=== PATIENT | male | born 1975 | race Caucasian/White ===

== ENCOUNTER 2022-11-25 14:45 | Outpatient (REF) | payer MEDICAID, SELFPAY ==
--- NOTE | ~2022-11-25 | XR_ITS ---
EXAMINATION: XR chest 2V CLINICAL INFORMATION: Reason for Exam J44.9 COMPARISON: Prior chest x-ray 12/18/2017 TECHNIQUE: XR chest 2V Lungs and Mona: Both lungs are clear. Pleura: Costophrenic angles are sharp. No pneumothorax. Heart: The heart is normal in size. Mediastinum: The mediastinum is within normal limits.. Bones: Skeletal structures included are normal for patient's age. XR/XR chest 2V IMPRESSION: No radiographic evidence of acute cardiopulmonary disease.
== END 2022-11-25 14:46 | disposition home or self-care (01) ==
LOC: HO.HHCX 14:45
PROVIDERS: Visit Provider Registered Nurse
DX: J44.9 Chronic obstructive pulmonary disease, unspecified (principal)
CPT/HCPCS: 71046

== ENCOUNTER 2023-04-11 10:41 | Outpatient (REF) | payer MEDICAID, SELFPAY ==
[2023-04-11 11:52] LABS: MANUAL DIFF FLAG NO
[2023-04-11 12:15] LABS: Basophils Percent Auto 0.8 % (0-2); Eosinophils Absolute Auto 0.2 X10*3/uL (0.0-0.4); Eosinophils Percent Auto 2.9 % (0-4); Hematocrit 45.7 % (42.0-52.0); Hemoglobin 15.4 g/dl (14.0-18.0); Imm Gran Abs Auto 0.01 X10*3/uL (0.00-0.03); Imm Gran Pct Auto 0.2 % (0.0-0.4); Lymphocytes Absolute Auto 1.6 X10*3/uL (1.2-4.9); Lymphocytes Percent Auto 30.3 % (20-40); Mean Corpuscular HGB Conc 33.7 g/dl (31.0-36.0); Mean Corpuscular Hemoglobin 31.6 pg (27.0-33.0); Mean Corpuscular Volume 93.8 fL (80.0-98.0); Mean Platelet Volume 10.8 fL (9.4-12.4); Monocytes Absolute Auto 0.5 X10*3/uL (0.1-1.2); Neutrophils Absolute Auto 2.9 x10*3/uL (2.0-8.3); Neutrophils Percent Auto 55.8 % (45-73); Platelet Count 302 X10*3/uL (160-400); Red Blood Count 4.87 X10*6/uL (4.60-5.80); Red Cell Distribution Width 13.2 % (11.0-16.0); White Blood Count 5.1 X10*3/uL (4.8-10.8)
[2023-04-11 12:21] LABS: Alanine Aminotransferase 20 U/L (0-40); Albumin Level 4.6 g/dL (3.5-5.0); Alkaline Phosphatase 105 U/L (39-117); Anion Gap 12 (12-20); Aspartate Amino Transferase 21 U/L (5-37); Bilirubin Total 0.8 mg/dL (0.0-1.0); Blood Urea Nitrogen 12 mg/dL (9-16); Calcium 9.8 mg/dL (8.4-10.2); Carbon Dioxide 27 mmol/L (22-29); Chloride 106 mmol/L (96-108); Cholesterol 203 mg/dL (<200); Estimated Glomerular Filt Rate > 60; Glucose Random 71 mg/dL (60-115); HDL Cholesterol 58 mg/dL (>40); LDL Cholesterol Calculated 130 mg/dL (<100); Potassium 4.5 mmol/L (3.3-5.1); Sodium 140 mmol/L (135-145); Total Protein 7.7 g/dL (6.5-8.0); Triglycerides 75 mg/dL (<150)
[2023-04-11 12:39] LABS: Syphilis Screen Nonreactive (Nonreactive)
[2023-04-11 14:22] LABS: Reflex LDLD? No
[2023-04-12 19:18] LABS: HIV RNA PCR Qn Copies <20 DETECTED copies/mL (NOT DETECTED); HIV RNA PCR Qn Log Copies <1.30 DETECTED (NOT DETECTED)
[2023-04-13 07:13] LABS: Absolute CD3 Count 1316 cells/uL (840-3060); Absolute CD4 Count 797 cells/uL (490-1740); Absolute CD8 Count 499 cells/uL (180-1170); Absolute Lymphocytes 1726 cells/uL (850-3900); CD4 CD8 Ratio 1.59 (0.86-5.00); Percent CD3 Cells 76 % (57-85); Percent CD4 Cells 46 % (30-61); Percent CD8 Cells 29 % (12-42)
[2023-04-14 00:09] LABS: TS Negative Control Passed; TS Panel A 1; TS Panel B 5; TS Positive Control Passed; TSpotTB Borderline (Negative)
== END 2023-04-11 10:42 | disposition home or self-care (01) ==
LOC: HO.HHCL 10:41
PROVIDERS: Visit Provider Student in an Organized Health Care Education/Training Program
DX: B20 Human immunodeficiency virus [HIV] disease (principal)
CPT/HCPCS: 36415; 80053; 80061; 85025; 86359; 86360; 86481; 86780; 87536

== ENCOUNTER 2023-07-13 08:58 | Outpatient (REF) | payer MEDICAID, SELFPAY ==
[2023-07-20 09:29] LABS: Rubella IgG Antibody >33.00 Index; Rubeola IgG (Measles) <13.50 AU/mL
== END 2023-07-13 08:59 | disposition home or self-care (01) ==
LOC: HO.HHCL 08:58
PROVIDERS: Visit Provider Student in an Organized Health Care Education/Training Program
DX: B20 Human immunodeficiency virus [HIV] disease (principal); R76.11 Nonspecific reaction to tuberculin skin test without active tuberculosis
CPT/HCPCS: 0353U; 36415; 80053; 85025; 86359; 86360; 86704; 86705; 86706; 86735; 86762; 86765; 87340; 87536

== ENCOUNTER 2023-08-07 08:52 | Outpatient (REF) | payer MEDICAID, SELFPAY ==
--- NOTE | ~2023-08-07 | US_ITS ---
EXAMINATION: US ABDOMEN COMPLETE CLINICAL INFORMATION: Intermittent right lower quadrant pain. COMPARISON: None available. TECHNIQUE: Real-time imaging of the abdominal viscera. Limited visualization due to bowel gas. FINDINGS: PANCREAS: Limited visualization of pancreatic tail and head. Imaged portion of pancreatic body is unremarkable. ABDOMINAL AORTA: Nonaneurysmal. Limited visualization of the distal abdominal aorta due to bowel gas. INFERIOR VENA CAVA: Visualized portions are normal. LIVER: Mild borderline increased hepatic parenchymal heterogeneity and echogenicity could be associated with hepatocellular disease/hepatic steatosis and substantially limits visualization. Correlation with liver function tests and clinical exam recommended to determine further management. GALLBLADDER: No gallstones. No gallbladder wall thickening. COMMON BILE DUCT: Normal in caliber measuring 0.6 cm in diameter. RIGHT KIDNEY: No hydronephrosis. No renal calculi. Limited visualization. The kidney measures 10.2 cm in maximum dimension. LEFT KIDNEY: Tiny echogenic foci within the left kidney likely represent calcified vessels versus less likely nonobstructive calculi. No hydronephrosis. Limited visualization. The kidney measures 10.5 cm in maximum dimension. SPLEEN: Normal. The spleen measures 8.0 cm in maximum dimension. FREE FLUID: None. US/US abdomen complete IMPRESSION: 1. Mild borderline increased hepatic parenchymal heterogeneity and echogenicity could be associated with hepatocellular disease/hepatic steatosis and substantially limits visualization. Correlation with liver function tests and clinical exam recommended to determine further management. 2. Tiny echogenic foci within the left kidney likely represent calcified vessels versus less likely nonobstructive calculi. No hydronephrosis.
== END 2023-08-07 08:53 | disposition home or self-care (01) ==
LOC: HO.US 08:52
PROVIDERS: PCP Registered Nurse; Visit Provider Registered Nurse
DX: R10.31 Right lower quadrant pain (principal)
CPT/HCPCS: 76700

== ENCOUNTER 2023-08-21 08:44 | Outpatient (REF) | payer MEDICAID, SELFPAY ==
--- NOTE | ~2023-08-21 | XR_ITS ---
EXAMINATION: XR CHEST CLINICAL INFORMATION: Positive TB test. COMPARISON: 11/25/2022. TECHNIQUE: 2 views of the chest were obtained. FINDINGS: No radiographic evidence of prior granulomatous disease. No significant abnormality is noted involving the heart, lungs, mediastinum, bony thorax or soft tissues. XR/XR chest 2V IMPRESSION: Unremarkable examination.
[2023-08-21 12:58] LABS: Alanine Aminotransferase 15 U/L (0-40); Albumin Level 4.5 g/dL (3.5-5.0); Alkaline Phosphatase 103 U/L (39-117); Aspartate Amino Transferase 18 U/L (5-37); Bilirubin Direct 0.2 mg/dL (0.0-0.5); Bilirubin Total 0.8 mg/dL (0.0-1.0); Total Protein 7.7 g/dL (6.5-8.0)
[2023-08-23 13:23] LABS: HIV RNA PCR Qn Copies 322 copies/mL (NOT DETECTED); HIV RNA PCR Qn Log Copies 2.51 (NOT DETECTED)
[2023-08-26 16:43] LABS: FIB-ALT 12 U/L (9-46); FIB-Alpha-2-Macroglobulin 184 mg/dL (106-279); FIB-Apolipoprotein A1 161 mg/dL (94-176); FIB-GGT 45 U/L (3-95); FIB-Haptoglobin 191 mg/dL (43-212); FIB-Total Bilirubin 0.6 mg/dL (0.2-1.2); Liver Fibrosis Score 0.17; Liver Fibrosis Stage F0; Nec Inflam Act Grade A0; Nec Inflam Act Score 0.03
== END 2023-08-21 08:45 | disposition home or self-care (01) ==
LOC: HO.HHCL 08:44
PROVIDERS: Registered Nurse; Visit Provider Student in an Organized Health Care Education/Training Program
DX: B20 Human immunodeficiency virus [HIV] disease (principal); R76.11 Nonspecific reaction to tuberculin skin test without active tuberculosis; R93.89 Abnormal findings on diagnostic imaging of other specified body structures
CPT/HCPCS: 36415; 71046; 80076; 81596; 87536

== ENCOUNTER 2023-09-11 09:44 | Outpatient (REF) | payer MEDICAID, SELFPAY ==
[2023-09-24 23:39] LABS: HIV 1 Integrase Proviral DNA DETECTED; HIV 1 PR RT Proviral DNA DETECTED
== END 2023-09-11 09:45 | disposition home or self-care (01) ==
LOC: HO.HHCL 09:44
PROVIDERS: Visit Provider Student in an Organized Health Care Education/Training Program
DX: B20 Human immunodeficiency virus [HIV] disease (principal)
CPT/HCPCS: 36415; 87900; 87901; 87906

== ENCOUNTER 2023-12-12 08:43 | Outpatient (REF) | payer MEDICAID, SELFPAY ==
[2023-12-12 12:40] LABS: Alanine Aminotransferase 16 U/L (0-40); Albumin Level 4.5 g/dL (3.5-5.0); Alkaline Phosphatase 96 U/L (39-117); Anion Gap 13 (12-20); Aspartate Amino Transferase 22 U/L (5-37); Bilirubin Total 0.7 mg/dL (0.0-1.0); Blood Urea Nitrogen 13 mg/dL (9-16); Calcium 9.9 mg/dL (8.4-10.2); Carbon Dioxide 24 mmol/L (22-29); Chloride 108 mmol/L (96-108); Cholesterol 196 mg/dL (<200); Estimated Glomerular Filt Rate > 60; Glucose Random 74 mg/dL (60-115); HDL Cholesterol 51 mg/dL (>40); LDL Cholesterol Calculated 119 mg/dL (<100); Potassium 4.9 mmol/L (3.3-5.1); Sodium 140 mmol/L (135-145); Total Protein 7.4 g/dL (6.5-8.0); Triglycerides 134 mg/dL (<150)
[2023-12-12 14:23] LABS: Reflex LDLD? No
[2023-12-14 14:23] LABS: HIV RNA PCR Qn Copies 53 copies/mL (NOT DETECTED); HIV RNA PCR Qn Log Copies 1.72 (NOT DETECTED)
== END 2023-12-12 08:44 | disposition home or self-care (01) ==
LOC: HO.HHCL 08:43
PROVIDERS: Visit Provider Student in an Organized Health Care Education/Training Program
DX: B20 Human immunodeficiency virus [HIV] disease (principal)
CPT/HCPCS: 36415; 80053; 80061; 87536

== ENCOUNTER 2023-12-18 06:18 | Day surgery (SDC) | payer MEDICAID, SELFPAY ==
[2023-12-14 09:52] VITALS: BMI 21.5
--- OUTSIDE RECORDS SUMMARY | 2023-12-18 06:20 | XMS_ITS | Continuity of Care Document ---
Author Organization [facility] Address [address] [place] [address]- Care Team Providers Care Sharepoint Architect Name Role Phone Priscilla Jimenes MD Primary Care Physician Unava ilable Encounter [facility] Date(s): 02/28/22 - 03/30/22 [facility] [address] [place] [address]- Attending Physician: Crystal Raygoza Admitting Physician: Crystal Raygoza Referring Physician: Crystal Raygoza Allergies, Adverse Reactions, Alerts No Known Allergies Medications Albuterol See Instructions, Scheduled / PRN, 0, 0, 10/25/05 10:59:56, as needed for wheezing Start Date: 10/25/05 Status: Ordered Complera oral tablet 1 tablet, By Mouth, Daily, # 30 tablet, 0 Refills, Maintenance, Tablet Start Date: 11/23/12 Status: Ordered Desyrel Tablet See Instructions, 0, 0, 10/25/05 10:54:04, 50 mg By Mouth, Constant Indicator Start Date: 10/25/05 Status: Ordered docusate sodium 100 mg oral capsule 1 capsule = 100 mg, By Mouth, 2 times a day, # 40 capsule, 0 Refills, Maintenance, Capsule Start Date: 11/27/12 Status: Ordered ibuprofen 600 mg oral tablet 1 tablet = 600 mg, By Mouth, 3 times a day, PRN Pain , Mild, # 42 tablet, 0 Refills, Maintenance, Tablet Start Date: 11/27/12 Status: Ordered methadone 10 mg/5 ml oral solution 54, mg, By Mouth, Daily, 0, 0, 10/25/05 10:52:29, Print RUFINO Number, [id number], Constant Indicator Start Date: 10/25/05 Status: Ordered Risperdal 2 mg oral tablet 2, mg, 1, tablet, By Mouth, Daily at bedtime, 30, tablet, 0, 0, 04/20/06 9:19:52, 144, Constant Indicator Start Date: 10/27/05 Stop Date: 11/26/05 Status: Ordered Seroquel 100 mg oral tablet 1 tablet = 100 mg, By Mouth, Daily at bedtime, 0 Refills, Maintenance Start Date: 11/25/12 Status: Ordered Suboxone 8 mg-2 mg sublingual tablet, disintegrating 2 tablet, Sublingual, Daily, 0 Refills, Maintenance, Tablet Start Date: 11/23/12 Status: Ordered Ventolin HFA 108 mcg/inh inhalation aerosol with adapter 1 puffs, Inhalation, 4 times a day, PRN for wheezing, # 18 Gm, 0 Refills, Maintenance, Aerosol Start Date: 11/25/12 Status: Ordered Zoloft 100 mg oral tablet 1 tablet = 100 mg, By Mouth, Daily, # 30 tablet, 0 Refills, Maintenance, Tablet Start Date: 11/25/12 Status: Ordered Problem List Condition Effective Dates Status Health Status Inform ant PPD positive history(Confirmed) 1, 2 Active Traumatic Pneumothorax with Open Wound Into Thorax(Confirmed) 12/06/12 Active 1Pt started 300mg INH and 50mg B6 therapy on 06/27/18. He received bottle #2 on 07/27/18. On 09/13/18 pt reports that he does not wish to continue treatment and reports he stopped taking LTBI tx on 08/21/18. 2Pt did not keep 4 sched appts. Letter sent to the referring source and to the pt. Care Team Personnel Name: Yudy HOWARD, Priscilla
--- OUTSIDE RECORDS SUMMARY | 2023-12-18 06:20 | XMS_ITS | Continuity of Care Document ---
Author Organization [facility] Address [address] [place] [address]- Care Team Providers Care Service Desk Technician Name Role Phone Priscilla Jimenes MD Primary Care Physician [place] [facility] [place] 03/21/23 - 07/13/23 [facility] [address] [place], [place] [address] Attending Physician: Sumit Johnson MD Admitting Physician: Sumit Johnson MD Referring Physician: Priscilla Jimenes MD Allergies, Adverse Reactions, Alerts No Known Allergies Medications Albuterol See Instructions, Scheduled / PRN, 0, 0, 10/25/05 10:59:56, as needed for wheezing Start Date: 10/25/05 Status: Ordered Complera oral tablet 1 tablet, By Mouth, Daily, # 30 tablet, 0 Refills, Maintenance, Tablet Start Date: 11/23/12 Status: Ordered Compression Stockings See Instructions, # 2 each, Refills 2, Tot. Refills 2, Maintenance, Dx: varicose veins with pain surgical, calf length 20-30 mm Hg, 03/21/23 15:43:00 EDT, Compound Start Date: 03/21/23 Status: Ordered Desyrel Tablet See Instructions, 0, 0, 10/25/05 10:54:04, 50 mg By Mouth, Constant Indicator Start Date: 10/25/05 Status: Ordered diclofenac sodium 1% topical cream = 2 Gm, Topically, Daily, 0 Refills, Maintenance, 03/21/23 15:37:00 EDT, Partial fill upon patient request if the prescription is for a schedule II opioid drug. Start Date: 03/21/23 Status: Ordered docusate sodium 100 mg oral capsule 1 capsule = 100 mg, By Mouth, 2 times a day, # 40 capsule, 0 Refills, Maintenance, Capsule Start Date: 11/27/12 Status: Ordered ibuprofen 600 mg oral tablet 1 tablet = 600 mg, By Mouth, 3 times a day, PRN Pain , Mild, # 42 tablet, 0 Refills, Maintenance, Tablet Start Date: 11/27/12 Status: Ordered lidocaine 5% topical film 1 patch, Topically, Daily, 0 Refills, Maintenance, 03/21/23 15:36:00 EDT, Partial fill upon patientrequest if the prescription is for a schedule II opioid drug. Start Date: 03/21/23 Status: Ordered methadone 10 mg/5 ml oral solution 54, mg, By Mouth, Daily, 0, 0, 10/25/05 10:52:29, Print RUFINO Number, [id number], Constant Indicator Start Date: 10/25/05 Status: Ordered Multi Vitamin+ 1 tablet, By Mouth, Daily, 0 Refills, Maintenance, 03/21/23 15:35:00 EDT, Partial fill upon patientrequest if the prescription is for a schedule II opioid drug. Start Date: 03/21/23 Status: Ordered Nicotrol Inhaler = 10 mg, By Mouth, Daily, 0 Refills, Maintenance, 03/21/23 15:34:00 EDT, Partial fill upon patient request if the prescription is for a schedule II opioid drug. Start Date: 03/21/23 Status: Ordered Omeprazole = 20 mg, By Mouth, Daily, 0 Refills, Maintenance, 03/21/23 15:33:00 EDT, Partial fill upon patient request if the prescription is for a schedule II opioid drug. Start Date: 03/21/23 Status: Ordered PEG-3350 with Electrolytes (Eqv-GoLYTELY) oral powder for reconstitution See Instructions, 1 glass every 15-30 minutes, # 4,000 mL, 0 Refills, Maintenance, 04/28/22 11:32:00 EDT, [facility], Partial fill upon patient request if the prescription is for a schedule II opioid drug., 1 glass every 15-30 mayakn... Start Date: 04/28/22 Status: Ordered Risperdal 2 mg oral tablet 2, mg, 1, tablet, By Mouth, Daily at bedtime, 30, tablet, 0, 0, 10/27/05 9:19:52, 144, Constant Indicator Start Date: 10/27/05 Stop Date: 11/26/05 Status: Ordered Seroquel 100 mg oral tablet 1 tablet = 100 mg, By Mouth, Daily at bedtime, 0 Refills, Maintenance Start Date: 11/25/12 Status: Ordered Suboxone 8 mg-2 mg sublingual tablet, disintegrating 2 tablet, Sublingual, Daily, 0 Refills, Maintenance, Tablet Start Date: 11/23/12 Status: Ordered Symbicort 160mcg/4.5mcg Inhaler 2, puffs, Inhalation, 2 times a day, Refills 0, Maintenance, 03/21/23 15:33:00 EDT Start Date: 03/21/23 Status: Ordered Ventolin HFA 108 mcg/inh inhalation aerosol with adapter 1 puffs, Inhalation, 4 times a day, PRN for wheezing, # 18 Gm, 0 Refills, Maintenance, Aerosol Start Date: 11/25/12 Status: Ordered Zoloft 100 mg oral tablet 1 tablet = 100 mg, By Mouth, Daily, # 30 tablet, 0 Refills, Maintenance, Tablet Start Date: 11/25/12 Status: Ordered Problem List Condition Confirmation Course Effective Dates Status Health St atus Informant Chronic obstructive lung disease Confirmed Active Chronic GERD Confirmed Active HIV disease Confirmed Active PPD positive history 1, 2 Confirmed Active Anxiety and depression Confirmed Active Tobacco use Confirmed Active Traumatic Pneumothorax with Open Wound Into Thorax Confirmed 12/06/12 Active Varicose veins of bilateral lower extremities with pain Confirmed Active 1Pt started 300mg INH and 50mg B6 therapy on 06/27/18. He received bottle #2 on 07/27/18. On 09/13/18 pt reports that he does not wish to continue treatment and reports he stopped taking LTBI tx on 08/21/18. 2Pt did not keep 4 sched appts. Letter sent to the referring source and to the pt. Social History Social History Type Response Smoking Status 10 or more cigarette s (1/2 pack or more)/day in last 30 days entered on: 03/21/23 Sex Patient Care team information Care Team Personnel Name: Celia Baum NP Position: [facility] Associate Professional Member Role: Primary Care Nurse Address: Address: [address] [place] [address] Trauma and [place] [address]- Name: Jose Guadalupe Torres RN Position: [facility] RN Member Role: Primary Care Nurse Name: Priscilla Jimenes MD Position: [facility] Outreach Member Role: PCP Address: Address: [address] [place] [address]- Care Team Related Persons Name: DAGMAR BANERJEE Address: home [address] [place] [address] Name: EDU FITZGERALD Address: [place] [address]
--- OUTSIDE RECORDS SUMMARY | 2023-12-18 06:20 | XMS_ITS | Continuity of Care Document ---
Author Organization [facility] Address [address] [place] [address]- Care Team Providers Care Internal Control Analyst Name Role Phone Yudy HOWARD, Priscilla Primary Care Physician Encounter [facility] [place] Date(s): 07/06/23 - 07/13/23 [facility] [address] [place] [address]- Encounter Diagnosis Varicose veins of bilateral lower extremities with pain(Discharge Diagnosis) - 07/06/23 Attending Physician: Sumit Johnson MD Referring Physician: Priscilla [...] 0, 0, 10/25/05 10:52:29, Print RUFINO Number, [id number], Constant Indicator Start Date: 10/25/05 Status: Ordered [...] mL, 0 Refills, Maintenance, 04/28/22 11:32:00 EDT, [facility], Partial fill upon patient request if the prescription is for a schedule II opioid drug., 1 glass every 15-30 mayank... Start Date: 04/28/22 Status: Ordered Risperdal 2 [...] the referring source and to the pt. Diagnosis Diagnosis Type Effective Dates Health Status Clinical Service Informant Varicose veins of bilateral lower extremities with pain Discharge Diagnosis 07/06/23 Vital Signs Most recent to oldest [Reference Range]: 1 Height 167 cm (07/06/23 11:03 AM) Oxygen Saturation [94-100 %] 97 % (07/06/23 11:03 AM) Pulse Rate [55-90 bpm] 91 bpm *H* (07/06/23 11:03 AM) Blood Pressure [90-138/55-84 mm Hg] 103/ 71mm Hg (07/06/23 11:03 AM) Mode of Delivery (Oxygen) Room air (07/06/23 11:03 AM) Blood pressure sites Arm, left (07/06/23 11:03 AM) Weight Obtained Via Bed scale (07/06/23 11:03 AM) Social History Social History Type Response Smoking Status 10 or more cigarette s (1/2 pack or more)/day in last 30 days entered on: 03/21/23 Sex Patient Care team information Care Team Personnel Name: Celia Baum NP Position: [facility] Associate Professional Member Role: Primary Care Nurse Address: Address: [address] [place] [address] Trauma [place] [address]- Name: Jose Guadalupe Torres RN Position: [facility] RN Member Role: Primary Care Nurse Name: Priscilla Jimenes MD Position: [facility] Outreach Member Role: PCP Address: Address: [address] [place] [address]- Care Team Related Persons Name: DAGMAR BANERJEE Address: home [address] [place] [address] Name: EDU FITZGERALD Address: [place] [address]
--- OUTSIDE RECORDS SUMMARY | 2023-12-18 06:20 | XMS_ITS | Continuity of Care Document ---
Author Organization [facility] Address [address] [place] [address]- Care Team Providers Care Machine Maintenance Name Role Phone Priscilla Jimenes MD Primary Care Physician Unava ilable Encounter [facility] [place] Date(s): 11/25/22 - 12/25/22 [facility] [address] [place] [address]- [place] Allergies, Adverse Reactions, Alerts No Known Allergies [...] 0, 0, 10/25/05 10:52:29, Print RUFINO Number, [id number], Constant Indicator Start Date: 10/25/05 Status: Ordered PEG-3350 with Electrolytes (Eqv-GoLYTELY) oral powder for reconstitution See Instructions, 1 glass every 15-30 minutes, # 4,000 mL, 0 Refills, Maintenance, 04/28/22 11:32:00 EDT, [facility], Partial fill upon patient request if [...] Effective Dates Status Health St atus Informant PPD positive history 1, 2 Confirmed Active Traumatic Pneumothorax with Open Wound Into Thorax Confirmed 12/06/12 Active 1Pt started 300mg INH and 50mg B6 therapy on 06/27/18. He received bottle #2 on 07/27/18. On 09/13/18 pt reports that he does not wish to continue treatment and reports he stopped taking LTBI tx on 08/21/18. 2Pt did not keep 4 sched appts. Letter sent to the referring source and to the pt. Patient Care team information Care Team Personnel Name: Celia Baum NP Position: [facility] Associate Professional Member Role: Primary Care Nurse Address: Address: [address] [place] [address] Trauma [place] [address]- Name: Jose Guadalupe Torres RN Position: [facility] RN Member Role: Primary Care Nurse Name: Priscilla Jimenes MD Position: [facility] Outreach Member Role: PCP Care Team Related Persons Name: DAGMAR BANERJEE Address: home [address] [place] [address] Name: EDU FITZGERALD Address: [place] [address]
--- OUTSIDE RECORDS SUMMARY | 2023-12-18 06:20 | XMS_ITS | Continuity of Care Document ---
Author Organization [facility] Address [address] [place] [address]- Care Team Providers Care Auditing Specialist Name Role Phone Priscilla Jimenes MD Primary Care Physician Encounter [facility] [id number] Date(s): 09/19/23 - 10/19/23 [facility] [address] [place], [place] [address] Attending Physician: Crystal Raygoza Admitting Physician: AdmtrCrystal Referring Physician: Admtr, Ar8 Allergies, Adverse Reactions, Alerts No Known Allergies [...] 0, 0, 10/25/05 10:52:29, Print RUFINO Number, [id number], Constant Indicator Start Date: 10/25/05 Status: Ordered [...] mL, 0 Refills, Maintenance, 04/28/22 11:32:00 EDT, [facility], Partial fill upon patient [...] last 30 days entered on: 03/21/23 Sex Laboratory * Event Display: Non Lab Results Authored Date: Patient Care team information Care Team Personnel Name: Celia Baum NP Position: S Associate Professional Member Role: Primary Care Nurse Address: Address: [address] [place] [address] Trauma and Acute Care Surgery [address] Name: Jose Guadalupe Torres RN Position: S RN Member Role: Primary Care Nurse Name: Priscilla Jimenes MD Position: [facility] Outreach Member Role: PCP Address: Address: [address] [place] [address]- Care Team Related Persons Name: DAGMAR BNAERJEE Address: home [address] [place] [address] Name: EDU FITZGERALD Address: [place] [address]
--- OUTSIDE RECORDS SUMMARY | 2023-12-18 06:20 | XMS_ITS | Continuity of Care Document ---
Author Organization [facility] Address [address] [place] [address]- Care Team Providers Care Treasury Specialist Name Role Phone Priscilla Jimenes MD Primary Care Physician Unava ilable [place] [facility] [place] - 11/30/[address] [address]- Attending Physician: Carlo Varela MD Admitting Physician: Carlo Varela MD Allergies, Adverse Reactions, Alerts No Known [...] 0, 0, 10/25/05 10:52:29, Print RUFINO Number, [id number], Constant Indicator Start Date: 10/25/05 Status: Ordered PEG-3350 with Electrolytes (Eqv-GoLYTELY) oral powder for reconstitution See Instructions, 1 glass every 15-30 minutes, # 4,000 mL, 0 Refills, Maintenance, 04/28/22 11:32:00 EDT, [facility], Partial fill upon patient request [...] Team Personnel Name: Celia Baum NP Position: [facility] Associate Professional Member Role: Primary Care Nurse Address: Address: [address] [place] [address] Trauma and [place] [address]- Name: Jose Guadalupe Torres RN Position: S RN Member Role: Primary Care Nurse Name: Priscilla Jimenes MD Position: [facility] Outreach Member Role: PCP Care Team Related Persons Name: DAGMAR BANERJEE Address: home [address] [place] [address] Name: EDU FITZGERALD Address: [place] [address]
--- OUTSIDE RECORDS SUMMARY | 2023-12-18 06:20 | XMS_ITS | Continuity of Care Document ---
Author Organization [facility] Address [address] [place] [address]- Care Team Providers Care Reheater Name Role Phone Priscilla Jimenes MD Primary Care Physician Encounter [facility] [place] Date(s): 07/06/23 - 10/19/23 [facility] [address] [place] [address]- Attending Physician: Sumit Johnson MD Referring Physician: [...] 0, 0, 10/25/05 10:52:29, Print RUFINO Number, [id number], Constant Indicator Start Date: 10/25/05 Status: Ordered [...] mL, 0 Refills, Maintenance, 04/28/22 11:32:00 EDT, [facility], Partial fill upon patient request [...] Team Personnel Name: Celia Baum NP Position: [facility] Associate Professional Member Role: Primary Care Nurse Address: Address: [address] [place] [address] Trauma [place] [address]- Name: Jose Guadalupe Torres RN Position: S RN Member Role: Primary Care Nurse Name: Priscilla Jimenes MD Position: [facility] Outreach Member Role: PCP Address: Address: [address] [place] [address]- [place] Care Team Related Persons Name: DAGMAR BANERJEE Address: home [address] [place] [address] Name: EDU FITZGERALD Address: [place] [address]
--- OUTSIDE RECORDS SUMMARY | 2023-12-18 06:20 | XMS_ITS | Continuity of Care Document ---
Author Organization [facility] Address [address] [place] [address]- Care Team Providers Care Snuff Box Finisher Name Role Phone Yudy HOWARD, Priscilla Primary Care Physician Tom iltaj Encounter [facility] [place] Date(s): 03/21/23 - 03/28/23 [facility] [address] [place] [address]- Encounter Diagnosis Varicose veins of bilateral lower extremities with pain(Discharge Diagnosis) - 03/21/23 Attending Physician: Sumit Johnson MD Referring Physician: Sharad Hagen MD Allergies, Adverse Reactions, Alerts No Known [...] 0, 0, 10/25/05 10:52:29, Print RUFINO Number, [id number], Constant Indicator Start Date: 10/25/05 Status: Ordered [...] mL, 0 Refills, Maintenance, 04/28/22 11:32:00 EDT, [facility], Partial fill upon patient request [...] bilateral lower extremities with pain Discharge Diagnosis 03/21/23 Vital Signs Most recent to oldest [Reference Range]: 1 Height 167 cm (03/21/23 3:37 PM) Weight 59.2 kg (03/21/23 3:37 PM) Oxygen Saturation [94-100 %] 99 % (03/21/23 3:37 PM) Pulse Rate [55-90 bpm] 95 bpm *H* (03/21/23 3:37 PM) Body Mass Index [18.5-24.99 kg/m2] 21.23 kg/m2 (03/21/23 3:37 PM) Blood Pressure [90-138/55-84 mm Hg] 104/ 69mm Hg (03/21/23 3:37 PM) Weight Obtained Via Bed scale (03/21/23 3:37 PM) Social History Social History Type Response Smoking Status 10 or more cigarette s (1/2 pack or more)/day in last 30 days entered on: 03/21/23 Sex Patient Care team information Care Team Personnel Name: Celia Baum NP Position: [facility] Associate Professional Member Role: Primary Care Nurse Address: Address: [address] [place] [address] Trauma and Acute Care Surgery [address] Name: Jose Guadalupe Torres RN Position: [facility] RN Member Role: Primary Care Nurse Name: Priscilla Jimenes MD Position: [facility] Outreach Member Role: PCP Care Team Related Persons Name: DAGMAR BANERJEE Address: home [address] [place] [address] Name: EDU FITZGERALD Address: [place] [address]
--- OUTSIDE RECORDS SUMMARY | 2023-12-18 06:20 | XMS_ITS | Continuity of Care Document ---
Author Organization [facility] Address [address] [place] [address]- Care Team Providers Care Cobol Programmer Name Role Phone Priscilla Jimenes MD Primary Care Physician [place] [facility] [place]): [place]23 - 07/15/23 [facility] [address] [place], [place] [address] Attending Physician: Crystal Raygoza Admitting Physician: Crystal Raygoza Referring Physician: AdmtrCrystal Allergies, Adverse Reactions, Alerts No Known Allergies [...] capsule, 0 Refills, Maintenance, Capsule Start Date: 5/21/13 Status: Ordered ibuprofen 600 mg oral tablet [...] 0, 0, 10/25/05 10:52:29, Print RUFINO Number, [id number], Constant Indicator Start Date: 10/25/05 Status: Ordered [...] mL, 0 Refills, Maintenance, 04/28/22 11:32:00 EDT, [facility], Partial fill upon patient request [...] Team Personnel Name: Celia Baum NP Position: [facility] Associate Professional Member Role: Primary Care Nurse Address: Address: [address] [place] [address] Trauma and Acute Care Surgery [place], [place] [address] Name: Jose Guadalupe Torres RN Position: [facility] RN Member Role: Primary Care Nurse Name: Priscilla Jimenes MD Position: [facility] Outreach Member Role: PCP Address: Address: [address] [place] [address]- Care Team Related Persons Name: DAGMAR BANERJEE Address: home [address] [place] [id number] Name: EDU FITZGERALD Address: [place] [address]
[2023-12-18 06:26] VITALS: BMI 21.0
[2023-12-18 06:52] VITALS: BP 110/81; PULSE 91; RESP 16; TEMP 36.2; O2SAT 98
[2023-12-18] MEDS: Lactated Ringers 1,000 ML 80 ML IVCONT (06:54)
--- NOTE | 2023-12-18 07:08 | P.CONAN_ITS ---
[facility] Past Medical History Medical History Varicose vein of leg GERD (gastroesophageal reflux disease) Depression COPD (chronic obstructive pulmonary disease) Asthma HIV (human immunodeficiency virus infection) Family History Family history of problems with anesthesia: No Surgical History Surgical History (Updated 12/18/23 @ 06:43 by Mel Morrison RN) Hx of removal of cyst No pertinent past surgical history History of Problems with Anesthesia: No Social History Social History Patient Tobacco Use Status: Current everyday Tobacco user Cigarettes Per Day: 12 Use of substances other than those prescribed or required for medical reasons: No Substance Use Type Other:: 18 years clean Are you DNR?: No Advance Directives: No Advance Directives Information Provided: Yes Meds Allergies Allergy/AdvReac Type Severity Reaction Status Date / Time acetaminophen [From TYLENOL] Allergy Intermediate LIVER Verified 12/18/23 06:53 PROBLEMS aspirin [ASA] Allergy Intermediate LIVER Verified 12/18/23 06:53 PROBLEMS latex [LATEX] Allergy Intermediate RASH Verified 12/18/23 06:53 Active Medications: Current Medications Lactated Ringer's (Lr) 1,000 mls @ 80 mls/hr IVCONT .[id number] JAVIER Last Admin: 12/18/23 06:54 Dose: 80 mls/hr Sodium Biphosphate/Sodium Phosphate (Sodium Phosphate,Acadia-Dibasic 133 Ml Enema) 133 ml FL ONCE PRN PRN Reason: Poor Colonoscopy Prep Results Home Medications ?Medication ?Instructions ?Recorded ?Confirmed ?Last Taken ?Type albuterol sulfate 90 mcg/actuation 2 puff inhalation Q4-6H PRN 12/14/23 12/14/23 Unknown History aerosol inhaler (Ventolin HFA) Shortness Of Breath Or Wheezing bictegravir 50 mg-emtricitabine 1 tab PO DAILY 12/14/23 12/14/23 12/16/23 History 200 mg-tenofovir alafenam 25 mg tablet budesonide-formoterol HFA 160 1 inh inhalation BID 12/14/23 12/18/23 12/18/23 History mcg-4.5 mcg/actuation aerosol inhaler (Symbicort) ibuprofen 800 mg tablet 800 mg PO TID 12/14/23 12/14/23 Unknown History multivitamin 1 tab PO DAILY 12/14/23 12/14/23 12/16/23 History Exam Height,Weight and Vital Signs: Height 5 ft 6 in Weight 58.967 kg Last Vital Signs Temp 97.1 F 12/18/23 06:52 Pulse 91 12/18/23 06:52 Resp 16 12/18/23 06:52 BP 110/81 12/18/23 06:52 Pulse Ox 98 12/18/23 06:52 O2 Del Method Room Air 12/18/23 06:52 Airway Mallampati Class: I TM Dist: >3cm Neck ROM: Full Loose/Missing/Broken Teeth: No Heart: rrr Lungs: cta Assessment and Plan Final Anesthetic Review Family History of Problems with Anesthesia: No History of Problems with Anesthesia: No NPO: Yes ASA Class: III Final Preanesthetic Review: No Changes in Pt Med Stat, Meds/Allgs Chart Reviewed, Consent Obtained/Reviewed and Anes Risks/Benef Reviewed Patient Risk: Intermediate Procedure Risk: Intermediate Anesthetic Plan Anesthetic Plan: TIVA Disposition: Standard PACU
[2023-12-18 08:39] VITALS: BP 103/73; PULSE 75; RESP 17; TEMP 36.1; O2SAT 94
--- NOTE | 2023-12-18 08:42 | PM.OP ---
Brief Operative Note Date of Service: 12/18/23 Pre-op diagnosis: GERD, Screening Post-op diagnosis: other (Hiatal hernia, Colon polyp) Procedure: EGD, Colonoscopy to the cecum with hot snare polypectomy Surgeon: Girish Dawson MD Anesthesia: MAC Was an Family Preservation Caseworker used for this Procedure?: No Estimated blood loss (mL): 0 Pathology: other (A. Polyp at 20cm) Condition: stable Disposition: PACU
[2023-12-18 08:54] VITALS: BP 108/75; PULSE 74; RESP 20; TEMP 36.3; O2SAT 98
--- NOTE | 2023-12-18 09:36 | OP_ITS ---
DATE OF SERVICE: 12/18/2023 SURGEON: Girish Dawson MD INDICATIONS: The patient presents for evaluation of gastroesophageal reflux, colorectal cancer screening. Full consent has been obtained from him for this, including risks of bleeding and perforation. PREOPERATIVE DIAGNOSIS: Gastroesophageal reflux and colorectal cancer screening. POSTOPERATIVE DIAGNOSIS: PROCEDURE PERFORMED: Esophagogastroduodenoscopy and colonoscopy to cecum with hot snare polypectomy. ESTIMATED BLOOD LOSS: COMPLICATIONS: ANESTHESIA: Monitored anesthesia care. ASSISTANTS: SPECIMENS: POSTOPERATIVE DIAGNOSES: Gastroesophageal reflux and colorectal cancer screening, hiatal hernia, colon polyp, internal hemorrhoids. DESCRIPTION OF PROCEDURE: The patient was placed in the left lateral decubitus position. The Olympus video gastroscope was passed in the posterior oropharynx and upper esophagus under direct vision. The scope was passed slowly into the distal esophagus. The gastroesophageal junction appeared normal at 36 cm. There was no sign of any esophagitis nor Lopez esophagus. There was evidence of a small hiatal hernia. The scope entered the stomach and was advanced to the pylorus. The duodenum was cannulated to the descending portion. The duodenum including the bulb appeared normal without mass or ulceration. The scope was withdrawn back in the stomach. The gastric antrum and body appeared normal with good peristalsis. The scope was retroflexed visualizing the proximal stomach carefully, which appeared normal, without any sign of mass or ulceration. The scope was straightened and withdrawn back to the esophagus. The esophageal mucosa appeared normal. Scope was withdrawn from the patient. He was turned around for the colonoscopy. The digital rectal exam revealed no abnormalities. The Olympus video pediatric colonoscope was entered into the rectum and advanced easily to the cecum. Once in the cecum, I did identify normal-appearing cecal pouch with appendiceal orifice and a normal-appearing ileocecal valve. The entire cecum and ileocecal valve appeared normal. The scope was slowly withdrawn assessing all mucosal surfaces carefully. Preparation was excellent. At 20 cm was an approximately 8 to 10 mm grossly adenomatous polyp on a short stalk, which was removed by hot snare polypectomy and recovered by suction. The polypectomy site appeared clean, without any sign of residual polyp nor bleeding. I did not visualize any other polyps, colitis, nor angiodysplasia. In the rectum, scope was retroflexed visualizing internal hemorrhoids, but no other pathology. The rectal mucosa appeared normal. The scope was straightened and withdrawn from the patient. He tolerated both procedures well and was returned to the recovery area in stable condition. IMPRESSION: 1. Colon polyp. 2. Internal hemorrhoids. 3. Hiatal hernia. PLAN: The results of the pathology will be checked. Assuming the colon polyp is a tubular adenoma, I would recommend a followup colonoscopy in 5 years. He was advised not to use any aspirin and NSAIDs for 1 week. He was advised to continue his omeprazole for his chronic reflux. He will otherwise see me on a p.r.n. basis. MD MARTINE Mason/STACY / [phone]
== END 2023-12-18 09:26 | disposition home or self-care (01) ==
PROVIDERS: PCP Registered Nurse; Visit Provider Internal Medicine
PROC: (CPT 45385; principal; 2023-12-18 07:30)
DX: Z12.11 Encounter for screening for malignant neoplasm of colon (principal); D12.6 Benign neoplasm of colon, unspecified; K64.8 Other hemorrhoids; K21.9 Gastro-esophageal reflux disease without esophagitis; K44.9 Diaphragmatic hernia without obstruction or gangrene; J44.9 Chronic obstructive pulmonary disease, unspecified
CPT/HCPCS: 45385; 43235; 88305; J2704

== ENCOUNTER 2024-01-29 16:33 | Outpatient (REF) | payer MEDICAID, SELFPAY | END 2024-01-29 16:34 | disposition home or self-care (01) | LOC: HO.HHCLNP 16:33 | PROVIDERS: Visit Provider Student in an Organized Health Care Education/Training Program | DX: B20 Human immunodeficiency virus [HIV] disease (principal) | CPT/HCPCS: 88112 ==

== ENCOUNTER 2024-05-14 09:22 | Outpatient (REF) | payer MEDICAID, SELFPAY ==
[2024-05-14 11:30] LABS: Appearance Urine Clear; Color Urine Yellow; Glucose Urine UA Negative (Negative); Leukocyte Esterase Urine Negative (Negative); Nitrite Urine Negative (Negative); PH 6.5 (5.0-9.0); Specific Gravity - Urine 1.015 (1.005-1.025); Urine Blood Negative (Negative); Urine Ketones Negative (Negative); Urine Protein Negative (Neg-Trace)
[2024-05-14 11:33] LABS: MANUAL DIFF FLAG NO
[2024-05-14 11:35] LABS: Bacteria Urine None Seen (None Seen); Basophils Percent Auto 0.5 % (0-2); Eosinophils Absolute Auto 0.2 X10*3/uL (0.0-0.4); Eosinophils Percent Auto 3.8 % (0-4); Hematocrit 45.7 % (42.0-52.0); Hemoglobin 15.8 g/dl (14.0-18.0); Hyaline Casts Urine 0-2 /LPF (0-2); Imm Gran Abs Auto 0.01 X10*3/uL (0.00-0.03); Imm Gran Pct Auto 0.2 % (0.0-0.4); Lymphocytes Absolute Auto 1.7 X10*3/uL (1.2-4.9); Lymphocytes Percent Auto 31.2 % (20-40); Mean Corpuscular HGB Conc 34.6 g/dl (31.0-36.0); Mean Corpuscular Hemoglobin 32.1 pg (27.0-33.0); Mean Corpuscular Volume 92.9 fL (80.0-98.0); Mean Platelet Volume 11.3 fL (9.4-12.4); Monocytes Absolute Auto 0.6 X10*3/uL (0.1-1.2); Monocytes Percent Auto 9.9 % (2-11); Neutrophils Percent Auto 54.4 % (45-73); Platelet Count 293 X10*3/uL (160-400); RBC Urine 0-2 /HPF (0-2); Red Blood Count 4.92 X10*6/uL (4.60-5.80); Red Cell Distribution Width 13.2 % (11.0-16.0); Squamous Epithelial Cell Urine 0-2 /HPF (0-2); WBC Urine 0-5 /HPF (0-5); White Blood Count 5.6 X10*3/uL (4.8-10.8)
[2024-05-14 12:07] LABS: Estimated Average Glucose 108 mg/dL; Hemoglobin A1c % 5.4 % (<6.0); Total Hemoglobin (HGBA1C) 4153.9067 umol/L
[2024-05-14 15:14] LABS: Alanine Aminotransferase 26 U/L (0-40); Albumin Level 4.5 g/dL (3.5-5.0); Alkaline Phosphatase 96 U/L (39-117); Anion Gap 13 (12-20); Aspartate Amino Transferase 25 U/L (5-37); Bilirubin Total 0.9 mg/dL (0.0-1.0); Blood Urea Nitrogen 13 mg/dL (9-16); Calcium 9.7 mg/dL (8.4-10.2); Carbon Dioxide 25 mmol/L (22-29); Chloride 107 mmol/L (96-108); Estimated Glomerular Filt Rate > 60; Glucose Random 66 mg/dL (60-115); Potassium 3.7 mmol/L (3.3-5.1); Sodium 141 mmol/L (135-145); Total Protein 7.4 g/dL (6.5-8.0)
[2024-05-15 17:33] LABS: HIV RNA PCR Qn Copies 89 copies/mL (NOT DETECTED); HIV RNA PCR Qn Log Copies 1.95 (NOT DETECTED)
[2024-05-16 10:33] LABS: RPR Rapid Plasma Reagin NON-REACTIVE (NON-REACTIVE)
[2024-05-17 05:12] LABS: TS Negative Control Passed; TS Panel A 0; TS Panel B 2; TS Positive Control Passed; TSpotTB Negative (Negative)
== END 2024-05-14 09:23 | disposition home or self-care (01) ==
LOC: HO.HHCL 09:22
PROVIDERS: Visit Provider Student in an Organized Health Care Education/Training Program
DX: Z21 Asymptomatic human immunodeficiency virus [HIV] infection status (principal)
CPT/HCPCS: 36415; 80053; 81001; 83036; 85025; 86481; 86592; 87536

== ENCOUNTER 2024-11-19 10:31 | Outpatient (REF) | payer MEDICAID, SELFPAY ==
[2024-11-19 11:28] LABS: MANUAL DIFF FLAG NO
--- OUTSIDE RECORDS SUMMARY | 2024-11-19 11:42 | XMS_ITS | Patient Health Record ---
Author Organization [facility] Address [address] [place] [address] Care Team Providers Care Revenue Liaison Name Role Phone CHAVA SCHWARTZ MD Primary Care Provider Girish Jefferson Unavailable [phone] Allergies No Known Allergies Results Component Value Reference Range Notes Pathology (Not yet reviewed by provider) Interpretation: Performing Lab:[facility], [address] [place] [phone] Notes/Report: Name: AlisDavid Beckett Age/Sex: 48/M : 1975 Unit#: [id number] Attend Dr: Girish Dawson Re12/18/23 Status : [facility] Location: [facility] Disch: SPEC : [id number] REC STATUS: SHERLYN CHONG NUM: [id number] KACY: 12/18/[address] [facility] [address]: Girish Dawson ENTERED: 12/18/23 39 SP TYPE: Surgical OTHR DR: Chava Schwartz [facility] ORDERED: HE Stain/3, Gross Micro L4 Diagnosis Colon, 20 cm, polype ctomy: Tubular adenoma; negative for high-grade dysplasia or carcinoma. Clinical History Pre-Op Dx: Reflux, screening Post-Op Dx: Hiatal h ernia, polyp, hemorrhoids Microscopic Description Microscopic sections reviewed. Material Received Polyp at 20 cm Gross Description Received in formalin labeled ?polyp at 20 cm? is a 0.6 cm congested and hemorrhagic red- maroon papular tissu e fragment, bisected and entirely submitted in a cassette labeled A. CEDS Copies To: Chava Schwartz [address] [place], [place] [id number] Girish Dawson [address] [place] [address] [address] [place] [address] Signed (si gnature on file) Emeka Schofield MD 12/20/23 0713 END OF REPORT Reason For Referral No Information Medications Medication SIG (Take, Route, Frequency, Duration) Notes Start Date End Date Status Lidocaine 5 % 1 patch remove after 12 hours Externally Once a day Unknown Ibuprofen 800 MG 1 tablet with food o r milk as needed Orally every 8 hrs Unknown Vosagcakepv-Yqsvjvxyzd-Oipd fov 50-200-25 MG 1 tablet Orally Once a day for 30 day(s) Unknown Acetaminophen 500 MG 1 capsule as needed Orally every 6 hrs Unknown Symbicort 160-4.5 MCG/ACT 1 puff as need ed Inhalation every 4 hrs Unknown Omeprazole 20 MG 1 capsule 30 minutes before morning meal Orally Once a day for 30 day(s) Unknown Nicotine 10 MG 1 cartridge as neede d Inhalation 16 time(s) a day Unknown Multi Vitamin - 1 tablet Orally Once a day for 30 day(s) Unknown Dulcolax (colon prep) 5 MG take at 3:00 p.m and 7:00p.m. Orally two tablets twice a day for one day for 1 day 09/18/2023 Unknown Ventolin HFA 108 (90 Base) MCG/ACT 1 puff as needed Inhalation every 4 hrs Unknown MiraLax (colon prep) 17 GM/SCOOP 1 238 Gm bottle mixed with Gatorade or Crystal Light Orally begin at 5:00 p.m. the day before the procedure for 1 day 09/18/2023 Unknown Immunizations Vaccine Route Administration Date Status Comme nts Influenza Unknown 05/02/2023 Administered Social History Tobacco Use: Social History Observation Description Date Details (start date - stop date) Current Smoker NA - NA Tobacco Use/Smoking Question Answer Notes Patient is a current smoker Alcohol Screen Question Answer Notes Did you have a drink contain ing alcohol in the past year? Yes How often did you have a dri nk containing alcohol in the past year? Monthly or less (1 point) How many drinks did you have on a typical day when you were drinking in the past year? 1 or 2 drinks (0 point) How often did you have 6 or more drinks on one occasion in the past year? Never (0 point) Points 1 Interpretation Negative Section Notes: He does smoke cigarettes. He does not use any significant amounts of alcohol. Problems Problem Type SNOMED Code ICD Code Onset Dates Problem Status W/U Status Risk Notes Problem Colon cancer screening (505777406) Colon cancer screening (Z12.11) Active confirmed Problem Gastroesophageal reflux disease without esophagitis (K21.9) Active confirmed Problem Gastroesophageal reflux disease (408582846) Chronic GERD (K21.9) Active confirmed Encounters Encounter Location Date Provider Diagnosis [facility] Outpatient [address] [place] [phone] 12/18/2023 Girish [place] Encounter for screen ing colonoscopy Z12.11 ; Colon polyps K63.5 ; Other hemorrhoids K64.8 ; Hiatal hernia K44.9 and Gastroesophageal reflux disease without esophagitis K21.9 [facility] [address] [place] [address] 06/17/2024 Girish [place] Assessments Encounter Date Diagnosis (ICD Code) Assessment Notes Treatment Notes Treatment Clinical Notes Section Notes 12/18/2023 Encounter for screening colonoscopy (ICD-10 - Z12.11) 12/18/2023 Colon polyps (ICD-10 - K63.5) 12/18/2023 Other hemorrhoids (ICD-10 - K64.8) 12/18/2023 Hiatal hernia (ICD-10 - K44.9) 12/18/2023 Gastroesophageal reflux disease without esophagitis (ICD-10 - K21.9) Plan Of Treatment Pending Test Test Name Order Date Pathology 12/18/2023 Future Test Test Name Order Date UPPER GI ENDOSCOPY 09/13/2023 COLONOSCOPY 09/13/2023 Insurance Providers Payer Name Payer Address Payer Phone Subscriber Number Group Number Insured Name Patient Relationship to Insured Coverage Start Date Coverage End Date [facility] [address] [place] [phone] [id number] DAVID SNELL Self - patient is the insured Medical (General) History Medical History History ICD Code HIV infection Allergic rhinitis Asthma/COPD Hx of depression GERD Varicose veins in both lower extremities Surgical History Surgery Date(Month/Year)
--- OUTSIDE RECORDS SUMMARY | 2024-11-19 11:42 | XMS_ITS ---
Author Organization [facility] Address [address] [place] [address] Care Team Providers Care Drag Out Man Name Role Phone CHAVA SCHWARTZ MD Primary Care Provider Girish Jefferson Unavailable [phone] Medications Medication SIG (Take, Route, Frequency, Duration) Notes Start Date End Date Status Ibuprofen 800 MG 1 tablet with food o r milk as needed Orally every 8 hrs Unknown Dgiwrpfjhlr-Tqwhcprrah-Lhxd fov 50-200-25 MG 1 tablet Orally Once a day for 30 day(s) Unknown Acetaminophen 500 MG 1 capsule as needed Orally every 6 hrs Unknown Dulcolax (colon prep) 5 MG take at 3:00 p.m and 7:00p.m. Orally two tablets twice a day for one day for 1 day 09/18/2023 Unknown MiraLax (colon prep) 17 GM/SCOOP 1 238 Gm bottle mixed with Gatorade or Crystal Light Orally begin at 5:00 p.m. the day before the procedure for 1 day 09/18/2023 Unknown Lidocaine 5 % 1 patch remove after 12 hours Externally Once a day Unknown Symbicort 160-4.5 MCG/ACT 1 puff as need ed Inhalation every 4 hrs Unknown Omeprazole 20 MG 1 capsule 30 minutes before morning meal Orally Once a day for 30 day(s) Unknown Nicotine 10 MG 1 cartridge as neede d Inhalation 16 time(s) a day Unknown Multi Vitamin - 1 tablet Orally Once a day for 30 day(s) Unknown Ventolin HFA 108 (90 Base) MCG/ACT 1 puff as needed Inhalation every 4 hrs Unknown Encounters Encounter Location Date Provider Diagnosis [facility] [address] [place] [phone] 06/17/2024 Girish Dawson Plan Of Treatment No Information Progress Notes * HEATHER SNELLDOB:1975 (48 yo M)Acc No.[id number]:06/17/2024 Patient:HEATHER CA :1975???Age:48 Y???Sex:Male Address:[address] [place] [address] Subjective: * Chief Complaints: * ??? * Medical History:? * Surgical History:? * Hospitalization/Major Diagno stic Procedure:? * Medications:?UnknownVentolin HFA 108 (90 Base) MCG/ACT Aerosol Solution 1 puff as needed Inhalation every 4 hrsSymbicort 160-4.5 MCG/ACT Aerosol 1 puff as needed Inhalation every 4 hrsOmeprazole 20 MG Capsule Delayed Release 1 capsule 30 minutes before morning meal Orally Once a dayNicotine 10 MG Inhaler 1 cartridge as needed Inhalation 16 time(s) a dayMulti Vitamin - Tablet 1 tablet Orally Once a dayLidocaine 5 % Patch 1 patch remove after 12 hours Externally Once a dayIbuprofen 800 MG Tablet 1 tablet with food or milk as needed Orally every 8 fgzInuzwhuemnd-Xnujufksts-Smobwph 50-200-25 MG Tablet 1 tablet Orally Once a dayAcetaminophen 500 MG Capsule 1 capsule as needed Orally every 6 hrsMiraLax (colon prep) 17 GM/SCOOP Powder 1 238 Gm bottle mixed with Gatorade or Crystal Light Orally begin at 5:00 p.m. the day before the procedureDulcolax (colon prep) 5 MG Tablet Delayed Release take at 3:00 p.m and 7:00p.m. Orally two tablets twice a day for one dayMedication List reviewed and reconciled with the patientUnknown Ventolin HFA 108 (90 Base) MCG/ACT Aerosol Solution 1 puff as needed Inhalation every 4 hrsUnknown Symbicort 160-4.5 MCG/ACT Aerosol 1 puff as needed Inhalation every 4 hrsUnknown Omeprazole 20 MG Capsule Delayed Release 1 capsule 30 minutes before morning meal Orally Once a dayUnknown Nicotine 10 MG Inhaler 1 cartridge as needed Inhalation 16 time(s) a dayUnknown Multi Vitamin - Tablet 1 tablet Orally Once a dayUnknown Lidocaine 5 % Patch 1 patch remove after 12 hours Externally Once a dayUnknown Ibuprofen 800 MG Tablet 1 tablet with food or milk as needed Orally every 8 hrsUnknown Bgptgpnhxql-Ljqcyewfhg-Bvvxqun 50-200-25 MG Tablet 1 tablet Orally Once a dayUnknown Acetaminophen 500 MG Capsule 1 capsule as needed Orally every 6 hrsUnknown MiraLax (colon prep) 17 GM/SCOOP Powder 1 238 Gm bottle mixed with Gatorade or Crystal Light Orally begin at 5:00 p.m. the day before the procedureUnknown Dulcolax (colon prep) 5 MG Tablet Delayed Release take at 3:00 p.m and 7:00p.m. Orally two tablets twice a day for one dayMedication List reviewed and reconciled with the patient Objective: Assessment: Plan: * Treatment: * Procedure Codes:? * true * Date:? Generated for Keenan castro/Juliano/Garry on:?11/19/2024 11:42 AM EDT
--- OUTSIDE RECORDS SUMMARY | 2024-11-19 11:42 | XMS_ITS ---
Author Organization [facility] Address [address] [place] [address] Care Team Providers Care Preforms Laminator Name Role Phone CHAVA SCHWARTZ MD Primary Care Provider Girish Jefferson Unavailable [phone] REASON FOR VISIT bowel prep Medications Medication SIG (Take, Route, Frequency, Duration) Notes Start Date End Date Status MiraLax (colon prep) 17 GM/SCOOP 1 238 Gm bottle mixed with Gatorade or Crystal Light Orally begin at 5:00 p.m. the day before the procedure for 1 day 09/18/2023 Active Dulcolax (colon prep) 5 MG take at 3:00 p.m and 7:00p.m. Orally two tablets twice a day for one day for 1 day 09/18/2023 Active Encounters Encounter Location Date Provider Diagnosis [facility] [address] 09/13/2023 Girish Dawson Plan Of Treatment Medication Medication Name Sig Start Date Stop Date Notes MiraLax (colon prep) 17 GM/SCOOP 1 238 Gm bottle mixed with Gatorade or Crystal Light Orally begin at 5:00 p.m. the day before the procedure for 1 day 09/18/2023 Dulcolax (colon prep) 5 MG take at 3:00 p.m and 7:00p.m. Orally two tablets twice a day for one day for 1 day 09/18/2023 Progress Notes * HEATHER SNELLDOB:1975 (47 yo M)Acc No.[id number]:09/13/2023 Patient:?HEATHER SNELL :1975???Age:47 Y???Sex:Male Address:[address] [place] [address], [address] * Refills? Start MiraLax (colon prep) Powder, 17 GM/SCOOP, Orally, 1, 1 238 Gm bottle mixed with Gatorade or Crystal Light, begin at 5:00 p.m. the day before the procedure, 1 day, Refills=0 Start Dulcolax (colon prep) Tablet Delayed Release, 5 MG, Orally, 4, take at 3:00 p.m and 7:00p.m., two tablets twice a day for one day, 1 day, Refills=0 * true * Date:? Generated for Keenan castro/Juliano/Garry on:?11/19/2024 11:42 AM EDT
--- OUTSIDE RECORDS SUMMARY | 2024-11-19 11:43 | XMS_ITS ---
Author Organization [facility] Address [address] [place] [address] Care Team Providers Care Stock Roller Name Role Phone CHAVA SCHWARTZ MD Primary Care Provider Girish Jefferson Unavailable [phone] REASON FOR VISIT gerd,screening Problems Problem Type SNOMED Code ICD Code Onset Dates Problem Status W/U Status Risk Notes Problem Gastroesophageal reflux disease without esophagitis (K21.9) Active confirmed Encounters Encounter Location Date Provider Diagnosis [facility] Outpatient [address] [place], [place] [id number] 12/18/2023 Girish Dawson Encounter for screen ing colonoscopy Z12.11 ; Colon polyps K63.5 ; Other hemorrhoids K64.8 ; Hiatal hernia K44.9 and Gastroesophageal reflux disease without esophagitis K21.9 Assessments Encounter Date Diagnosis (ICD Code) Assessment Notes Treatment Notes Treatment Clinical Notes Section Notes 12/18/2023 Encounter for screening colonoscopy (ICD-10 - Z12.11) 12/18/2023 Colon polyps (ICD-10 - K63.5) 12/18/2023 Other hemorrhoids (ICD-10 - K64.8) 12/18/2023 Hiatal hernia (ICD-10 - K44.9) 12/18/2023 Gastroesophageal reflux disease without esophagitis (ICD-10 - K21.9) Plan Of Treatment No Information Progress Notes * HEATHER SNELLDOB:1975 (49 yo M)Acc No.[id number]:12/18/2023 EGD and COL/MAC Patient:?HEATHER SNELL Provider:?Girish Dawson MD :1975???Age:48 Y???Sex:Male Anton e:12/18/2023 Address:[address] [place] [address] Pcp:CHAVA SCHWARTZ MD Subjective: * Chief Complaints: * ???1. Gerd,screening. * Medical History:? Objective: * Vitals:? Assessment: * Assessment: 1.?Encounter for screening c olonoscopy - Z12.11 (Primary)???2.?Colon polyps - K63.5???3.?Other hemorrhoids - K64.8???4.?Hiatal hernia - K44.9???5.?Gastroesophageal reflux disease without esophagitis - K21.9??? Plan: * Treatment: * Procedure Codes:?70379 LESIO N REMOVAL COLONOSCOPY, 14815 UPPER GI ENDOSCOPY, BIOPSY, Modifiers: 51 * * The named appointment provid er may or may not be the originator of this progress note, and it is not deemed complete until electronically signed by the appointment provider. Sign off status: Pending * Provider:?Girish Dawson MD Date:? 024 Generated for Keenan castro/Juliano/eTransmitting on:?11/19/2024 11:42 AM EDT
--- OUTSIDE RECORDS SUMMARY | 2024-11-19 11:43 | XMS_ITS | Clinical Summary ---
Author Organization [facility] ity Address [address] [place] [address] Care Team Providers Care Outsole Paraffiner Name Role Phone Unavailable Primary Care Provider Unavailabl e Social History Tobacco Use Types Packs/Day Years Used Date Smoking Tobacco: Never Assessed Sex and Gender Information Value Date Recorded Sex Assigned at Not on file Legal Sex Male 6:17 PM EST Gender Identity Not on file Sexual Orientation Not on file Plan of Treatment Health Maintenance Due Date Last Done Comments DTaP,Tdap,and Td Vaccines (1 - Tdap) 1996 Hepatitis B Vaccines (1 of 3 - 19+ 3-dose series) 1996 COVID-19 Vaccine (2023-2 5 season) 2024 Influenza Vaccine (Season Ended) 2025 HIB Vaccines Aged Out No longer eligi ble based on patient's age to complete this topic HPV Vaccines Aged Out No longer eligi ble based on patient's age to complete this topic Hepatitis A Vaccines Aged Out No long er eligible based on patient's age to complete this topic IPV Vaccines Aged Out No longer eligi ble based on patient's age to complete this topic MMR Vaccines Aged Out No longer eligi ble based on patient's age to complete this topic Meningococcal ACWY Vaccine Aged Out N o longer eligible based on patient's age to complete this topic Meningococcal B Vaccine Aged Out No l onger eligible based on patient's age to complete this topic Pneumococcal Vaccine: Pediat rics (0 to 5 Years) and At-Risk Patients (6 to 64 Years) Aged Out No longer eligible b ased on patient's age to complete this topic RSV Immunization Patients Un lorrie 20 months Aged Out No longer eligible b ased on patient's age to complete this topic Varicella Vaccines Aged Out No longer eligible based on patient's age to complete this topic
[2024-11-19 11:47] LABS: Basophils Percent Auto 0.6 % (0-2); Eosinophils Absolute Auto 0.2 X10*3/uL (0.0-0.4); Eosinophils Percent Auto 4.2 % (0-4); Hematocrit 43.6 % (42.0-52.0); Hemoglobin 15.1 g/dl (14.0-18.0); Imm Gran Abs Auto 0.01 X10*3/uL (0.00-0.03); Imm Gran Pct Auto 0.2 % (0.0-0.4); Lymphocytes Absolute Auto 1.7 X10*3/uL (1.2-4.9); Lymphocytes Percent Auto 33.9 % (20-40); Mean Corpuscular HGB Conc 34.6 g/dl (31.0-36.0); Mean Corpuscular Hemoglobin 31.8 pg (27.0-33.0); Mean Corpuscular Volume 91.8 fL (80.0-98.0); Mean Platelet Volume 10.5 fL (9.4-12.4); Monocytes Absolute Auto 0.5 X10*3/uL (0.1-1.2); Monocytes Percent Auto 8.9 % (2-11); Neutrophils Absolute Auto 2.6 x10*3/uL (2.0-8.3); Neutrophils Percent Auto 52.2 % (45-73); Platelet Count 286 X10*3/uL (160-400); Red Blood Count 4.75 X10*6/uL (4.60-5.80); Red Cell Distribution Width 13.2 % (11.0-16.0)
[2024-11-19 12:33] LABS: Alanine Aminotransferase 22 U/L (0-40); Albumin Level 4.4 g/dL (3.5-5.0); Alkaline Phosphatase 94 U/L (39-117); Anion Gap 15 (12-20); Aspartate Amino Transferase 24 U/L (5-37); Bilirubin Total 0.7 mg/dL (0.0-1.0); Blood Urea Nitrogen 13 mg/dL (9-16); Calcium 9.1 mg/dL (8.4-10.2); Carbon Dioxide 24 mmol/L (22-29); Chloride 107 mmol/L (96-108); Estimated Glomerular Filt Rate > 60; Glucose Random 74 mg/dL (60-115); Potassium 4.2 mmol/L (3.3-5.1); Sodium 142 mmol/L (135-145); Total Protein 7.2 g/dL (6.5-8.0)
[2024-11-21 13:13] LABS: HIV RNA PCR Qn Copies NOT DETECTED copies/mL (NOT DETECTED); HIV RNA PCR Qn Log Copies NOT DETECTED (NOT DETECTED)
[2024-11-24 21:44] LABS: Absolute CD3 Count 1440 cells/uL (840-3060); Absolute CD4 Count 804 cells/uL (490-1740); Absolute CD8 Count 616 cells/uL (180-1170); Absolute Lymphocytes 1831 cells/uL (850-3900); CD4 CD8 Ratio 1.31 (0.86-5.00); Percent CD3 Cells 79 % (57-85); Percent CD4 Cells 44 % (30-61); Percent CD8 Cells 34 % (12-42)
== END 2024-11-19 10:32 | disposition home or self-care (01) ==
LOC: HO.HHCL 10:31
PROVIDERS: Visit Provider Student in an Organized Health Care Education/Training Program
DX: Z21 Asymptomatic human immunodeficiency virus [HIV] infection status (principal)
CPT/HCPCS: 36415; 80053; 85025; 86359; 86360; 87536

== ENCOUNTER 2025-01-06 13:03 | Outpatient (REF) | payer MEDICAID, SELFPAY ==
--- OUTSIDE RECORDS SUMMARY | 2025-01-06 13:29 | XMS_ITS | Clinical Summary ---
Author Organization [employer] [facility] ity Address [address] [place] [address] Care Team Providers Care Senior Director Marketing Name Role Phone Unavailable Primary Care Provider [...]
--- OUTSIDE RECORDS SUMMARY | 2025-01-06 13:29 | XMS_ITS | Patient Health Record ---
Author Organization [facility] Address [address] [place] [id number] Care Team Providers Care Imaging Tech Name Role Phone CHAVA SCHWARTZ MD Primary Care Provider Girish Jefferson Unavailable [phone] Allergies No Known Allergies Reason For Referral No Information Medications Medication SIG (Take, Route, Frequency, Duration) Notes Start Date End Date Status Lidocaine 5 % 1 patch remove after 12 hours Externally Once a day Unknown Ibuprofen 800 MG 1 tablet with food o r milk as needed Orally every 8 hrs Unknown Vibaopwyoqz-Ciqdslamdo-Spjz fov 50-200-25 MG 1 tablet Orally Once [...] Status Risk Notes Problem Colon cancer screening (225091618) Colon cancer screening (Z12.11) Active confirmed Problem Gastroesophageal reflux disease without esophagitis (K21.9) Active confirmed Problem Gastroesophageal reflux disease (944534133) Chronic GERD (K21.9) Active confirmed Encounters Encounter Location Date Provider Diagnosis [facility] [address] [place] [id number] 06/17/2024 Girish Dawson Plan Of Treatment Pending Test Test Name Order Date Pathology 12/18/2023 Future Test Test Name Order Date UPPER GI ENDOSCOPY 09/13/2023 COLONOSCOPY 09/13/2023 Insurance Providers Payer Name Payer Address Payer Phone Subscriber Number Group Number Insured Name Patient Relationship to Insured Coverage Start Date Coverage End Date MEDICAID OF [facility] [address] [place] [phone] [id number] HEATHER SNELL Self - patient is the insured Medical (General) History Medical History History ICD Code HIV infection Allergic rhinitis Asthma/COPD Hx of depression GERD Varicose veins in both lower extremities Surgical History Surgery Date(Month/Year)
== END 2025-01-06 13:04 | disposition home or self-care (01) ==
LOC: HO.HHCLNP 13:03
PROVIDERS: Visit Provider Student in an Organized Health Care Education/Training Program
DX: Z21 Asymptomatic human immunodeficiency virus [HIV] infection status (principal)
CPT/HCPCS: 88112

== ENCOUNTER 2025-02-24 11:12 | Outpatient (REF) | payer MEDICAID, SELFPAY ==
--- NOTE | ~2025-02-24 | CT_ITS ---
EXAMINATION: CT ABDOMEN PELVIS WITH IV CONTRAST HISTORY: Rt upper quadrant pain COMPARISON: Correlation is made with an abdominal ultrasound dated 08/07/2023. TECHNIQUE: CT scan of the abdomen and pelvis was performed following administration of 85 mL Omnipaque 350 using standard departmental protocol. Coronal and sagittal reformatted images were generated and reviewed. The patient received oral contrast material. This CT exam was performed with one or more of the following dose reduction techniques: automated exposure control, adjustment of the mA and/or kV according to patient size, use of iterative reconstruction technique. DLP: 223 mGy-cm FINDINGS: LOWER CHEST: The visualized lung bases are clear. There is no pleural effusion. CARDIOVASCULATURE: The heart is normal in size. There is no pericardial effusion. LIVER: The liver is normal in size and contour. No liver mass is identified. The hepatic and portal veins are patent. GALLBLADDER / BILE DUCTS: The gallbladder is unremarkable. There is no intra or extrahepatic biliary ductal dilatation. SPLEEN: The spleen is normal in size. No focal splenic lesion is identified. PANCREAS: The pancreas is unremarkable in appearance. ADRENAL GLANDS: Within normal limits. KIDNEYS/RETROPERITONEUM: There is a 3 mm nonobstructing calculus at the lower pole of the right kidney. There are multiple tiny 1-2 mm calculi in the interpolar region of the left kidney. There is no hydronephrosis. No renal masses are identified. LYMPH NODES: No abdominal or pelvic lymphadenopathy. VASCULATURE: The abdominal aorta is normal in caliber. MESENTERY/PERITONEUM: No free fluid. No masses. There is no free intraperitoneal gas. STOMACH: The stomach is collapsed, limiting evaluation. SMALL BOWEL: The small bowel is normal in caliber. COLON: The colon is unremarkable. APPENDIX: Normal. URINARY BLADDER/PELVIC ORGANS: The urinary bladder is unremarkable. The prostate is normal in size. BONES / SOFT TISSUES: No suspicious bony or soft tissue abnormalities. CT/CT abdomen pelvis w IV con IMPRESSION: Bilateral nephrolithiasis without evidence of ureteral obstruction. Otherwise unremarkable contrast-enhanced CT of the abdomen and pelvis. Electronically signed by: Girish Ball MD 02/24/2025 02:10 PM EDT
--- OUTSIDE RECORDS SUMMARY | 2025-02-24 12:27 | XMS_ITS | Patient Health Record ---
Author Organization [facility] Address [address] [place] [id number] Care Team Providers Care Shank Cementer Hand Name Role Phone CHAVA SCHWARTZ MD Primary Care Provider Girish Jefferson Unavailable [phone] Allergies No Known Allergies Reason For Referral No Information Medications Medication SIG (Take, Route, Frequency, Duration) Notes Start Date End Date Status Lidocaine 5 % 1 patch remove after 12 hours Externally Once a day Unknown Ibuprofen 800 MG 1 tablet with food o r milk as needed Orally every 8 hrs Unknown Pmkogjzoxmb-Zbqvvzcoyi-Gram fov 50-200-25 MG 1 tablet Orally Once [...] Status Risk Notes Problem Colon cancer screening (903599721) Colon cancer screening (Z12.11) Active confirmed Problem Gastroesophageal reflux disease without esophagitis (397127177) Gastroesophageal reflux disease without esophagitis (K21.9) Active confirmed Problem Gastroesophageal reflux disease (227240121) Chronic GERD (K21.9) Active confirmed Encounters Encounter Location Date Provider Diagnosis [facility] [address] [place] [address] 06/17/2024 Girish Dawson Plan Of Treatment Pending Test Test Name Order Date Pathology 12/18/2023 Future Test Test Name Order Date UPPER GI ENDOSCOPY 09/13/2023 COLONOSCOPY 09/13/2023 Insurance Providers Payer Name Payer Address Payer Phone Subscriber Number Group Number Insured Name Patient Relationship to Insured Coverage Start Date Coverage End Date MEDICAID OF [facility] [address] [place] [phone] [id number] HEATHER SNELL Self - patient is the insured Medical (General) History Medical History History ICD Code HIV infection Allergic rhinitis Asthma/COPD Hx of depression GERD Varicose veins in both lower extremities Surgical History Surgery Date(Month/Year)
--- OUTSIDE RECORDS SUMMARY | 2025-02-24 12:27 | XMS_ITS | Clinical Summary ---
Author Organization [employer] [facility] ity Address [address] [place] [address] Care Team Providers Care Front End Drupal Developer Name Role Phone Unavailable Primary Care Provider [...] 1996 COVID-19 Vaccine (2023-2 5 season) 2024 Depression Screening 07/10/2024 Influenza Vaccine (#1) 2025 HIB Vaccines Aged Out No longer [...] 5 Years) and At-Risk Patients (6 to 49 Years) Aged Out No longer eligible b ased on patient's age to complete this topic RSV Immunization Patients Un lorrie 20 months Aged Out No longer eligible b ased on patient's age to complete this topic Varicella Vaccines Aged Out No longer eligible based on patient's age to complete this topic
[2025-02-24] MEDS: iohexoL 350 MG/ML 100 ML INFUS..BTL IV (14:01)
[2025-02-24] MEDS: Barium Sulfate Oral (Mocha) 450 ML ORAL.SUSP 900 ML PO (14:02)
== END 2025-02-24 11:13 | disposition home or self-care (01) ==
LOC: HO.CT 11:12
PROVIDERS: PCP Registered Nurse; Visit Provider Student in an Organized Health Care Education/Training Program
DX: R10.11 Right upper quadrant pain (principal)
CPT/HCPCS: 74177; Q9967

== ENCOUNTER → 2025-02-24 13:30 | Outpatient (BNV) | payer MEDICAID, SELFPAY | PROVIDERS: PCP Registered Nurse; Visit Provider Radiology Diagnostic Radiology | DX: R10.11 Right upper quadrant pain (principal) | CPT/HCPCS: 74177 ==